=== PATIENT | female | born 2000 | race Caucasian/White ===

== ENCOUNTER 2020-11-14 02:06 | Emergency (ER) | payer SELFPAY ==
[~2020-11-14] VITALS: Ht 172.7 cm; Wt 140.6 kg
[~2020-11-14 02:06] MED LIST: SERTRALINE HCL100 MG PO
[2020-11-14] MEDS ORDERED: SODIUM CHLORIDE 0.9% 1000ML 1,000 ML IV SCH (03:15)
[2020-11-14] MEDS ORDERED: DEXAMETHASONE SOD PHOS INJ 4 MG/ML VIAL IV ONE (03:15)
[2020-11-14] MEDS ORDERED: METOCLOPRAMIDE HCL 10 MG/2ML VIAL IV ONE (03:15)
[2020-11-14] MEDS ORDERED: DIPHENHYDRAMINE HCL INJ 50 MG/ML VIAL IV ONE (03:15)
[2020-11-14] MEDS ORDERED: DEXAMETHASONE SOD PHOS INJ 4 MG/ML VIAL ONE (03:55)
[2020-11-14] MEDS ORDERED: METOCLOPRAMIDE HCL 10 MG/2ML VIAL ONE (03:56)
[2020-11-14] MEDS ORDERED: DIPHENHYDRAMINE HCL INJ 50 MG/ML VIAL ONE (03:56)
[2020-11-14] MEDS ORDERED: SODIUM CHLORIDE 0.9% 1000ML 1,000 ML ONE (03:56)
[2020-11-14] MEDS ORDERED: FIORICET 50-301 EACH PO (04:42)
[2020-11-14 04:58] VITALS: BP 126/76
== END 2020-11-14 04:58 | disposition home or self-care (01) ==
LOC: FSED 02:15
DX: R51.9 Headache, unspecified (principal); F32.9 Major depressive disorder, single episode, unspecified
CPT/HCPCS: 70450; 80053; 81003; 81025; 85025; 96374; 96375; 96376; 99284; J1100; J1200; J2765; J7030